=== PATIENT | male | born 1970 ===

== ENCOUNTER 2020-04-30 08:45 | Outpatient (NON) | payer BC, SELFPAY ==
[2020-04-30 18:02] LABS: SARS-CoV-2 RNA PCR Negative
== END 2020-04-30 08:46 ==
PROVIDERS: Visit Provider Otolaryngology Plastic Surgery within the Head & Neck
DX: R09.89 Other specified symptoms and signs involving the circulatory and respiratory systems (principal); Z20.828 Contact with and (suspected) exposure to other viral communicable diseases
CPT/HCPCS: 87635; C9803; U0003